=== PATIENT | female | born 1935 | race Caucasian/White ===

== ENCOUNTER 2016-05-26 06:29 | Emergency (ER) | payer MEDICARE ==
--- NOTE | 2016-05-26 07:24 | DIAGNOSTIC IMAGING REPORT ---
PROCEDURE: XR WRIST 1 OR 2 VIEWS - LEFT INDICATION: TRAUMA TECHNIQUE: AP view COMPARISON: None. FINDINGS: Minimally impacted transverse distal radius fracture. There is a questionable nondisplaced avulsion fracture of the ulnar styloid. Osteopenia. There is soft tissue swelling. IMPRESSION: 1. Minimally impacted distal radius fracture 2. Questionable avulsion fracture of the ulnar styloid 3. Osteopenia
--- NOTE | 2016-05-26 07:58 | DIAGNOSTIC IMAGING REPORT ---
PROCEDURE: XR WRIST 1 OR 2 VIEWS - LEFT INDICATION: Fall injury TECHNIQUE: AP and lateral views COMPARISON: Left wrist x-ray 05/26/2016 FINDINGS: Transverse impacted nondisplaced fracture of the distal radius extending to the articular surface. Smooth deformity of the ulnar styloid suggestive of old post-traumatic changes. Osteopenia. Soft tissue swelling IMPRESSION: 1. Transverse impacted intra-articular fracture of the distal radius
--- NOTE | 2016-05-26 09:47 | ED NURSING NOTES ---
Clinical Report - Nurses [facility] [address] [place] [address] 05/26/2016 6:31 Patient: JOSAFAT MAGALLANES TRIAGE Triage time 0640. Acuity: LEVEL 3. Chief Complaint: INJURY TO LEFT WRIST. --06:43 Alvaro Leonardo R.N. 06:33 05/26/16. BP: 157/91. HR: 100. RR: 18. O2 saturation: 96%. Temp: 98.8 F. Pain level now 0/10. --06:43 Alvaro Leonardo R.N. Weight: 68 kg estimated. Height/Length: 67 inches Estimated. BMI: 23.5. --06:38 Alvaro Leonardo R.N. Medications Calcium Carbonate-Vitamin D Oral (Capsule 500-50 mg-unit) 1 capsule. Raloxifene HCl Oral 60 mg, daily. --06:40 Alvaro Leonardo R.N. ClonazePAM Oral (Tablet 0.5 mg) 1-1/2 tablets, 3x a day. --07:33 Paula Chirinos R.N. Furosemide Oral (Tablet 20 mg) 1 tablet, daily. --07:34 Paula Chirinos R.N. Multivitamins Oral 1 pill, daily. --07:34 Paula Chirinos R.N. Probiotic Daily Oral 1tab, bid. --07:34 Paula Chirinos R.N. Vitamin D Oral (Capsule 1000 unit) 2 capsules, daily. --07:35 Paula Chirinos R.N. Mirtazapine Oral (Tablet 15 mg) 1 tablet, at bedtime. --07:36 Paula Chirinos R.N. Lortab Oral (Tablet 10-325 mg), PRN. --07:37 Paula Chirinos R.N. The following entry was struck by Paula Chirinos R.N., 07:44 (05/26/16) Reason - other. <<STRICKEN ENTRY-- Triamterene-HCTZ Oral (Tablet 37.5-25 mg) 1 tablet, daily. --06:40 Alvaro Leonardo R.N. --END STRIKE>> The following entry was struck by Paula Chirinos R.N., 07:44 (05/26/16) Reason - other. <<STRICKEN ENTRY-- Donepezil HCl Oral (Tablet 5 mg) 1 tablet, daily. --06:40 Alvaro Leonardo R.N. --END STRIKE>> The following entry was struck by Paula Chirinos R.N., 07:43 (05/26/16) Reason - other. <<STRICKEN ENTRY-- FLUoxetine HCl Oral 40 mg, daily. --06:40 Alvaro Leonardo R.N. --END STRIKE>> The following entry was struck by Paula Chirinos R.N., 07:43 (05/26/16) Reason - other. <<STRICKEN ENTRY-- LORazepam Oral 0.25 mg, 3x a day prn, AND 0.25mg nightly at HS . --06:40 Alvaro Leonardo R.N. --END STRIKE>> The following entry was struck by Paula Chirinos R.N., 07:43 (05/26/16) Reason - other. <<STRICKEN ENTRY-- Omeprazole Oral 20 mg, before meals. --06:40 Alvaro Leonardo R.N. --END STRIKE>> The following entry was struck by Paula Chirinos R.N., 07:42 (05/26/16) Reason - other. <<STRICKEN ENTRY-- Cholestyramine Oral 4 gm, 2x a day. --06:40 Alvaro Leonardo R.N. --END STRIKE>>. Allergies Lipitor- liver enzymes become elevated. MEDICATION FOR EYE ITCHING. --06:40 Alvaro Leonardo R.N. Atorvastatin. --07:30 Paula Chirinos R.N. History Arrived by EMS. 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 Mechanism of injury: fell. ( glf with swelling to left wrist approx. 12 hours ago). No neck pain, weakness or numbness. 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 SOCIAL HX: No alcohol use or drug use. NUTRITIONAL RISK ASSESSMENT: The nutritional risk assessment revealed no deficiencies. FALL RISK ASSESSMENT: Fall risk assessment completed. Risk factors identified include patient age greater than 65 years, history of fall and impairment of cognition. FUNCTIONAL ASSESSMENT: Functional assessment performed: requires assistance with the activities of daily living. LEARNING NEEDS ASSESSMENT: The learning needs assessment could not be obtained due to the patient's condition. --06:43 Alvaro Leonardo R.N. PROBLEMS: URI. Depression. Memory loss. Hyperlipidemia. Thrombocytosis. Vericose vein. Chest Pain. Rosacea. Elevated LFT's. Hemorrhoids. Rheumatoid Arthritis. Diverticulosis. UTI - Urinary Tract Infection. Pulmonary Nodule. Pharyngitis. Immunizations. Bronchitis. Nephrolithiasis. Arthritis. Irritable Bowel Syndrome. Gastroesophageal Reflux. Chronic Back Pain. Hypertension. --06:41 Alvaro Leonardo R.N. ADDITIONAL SURGERIES: Ankle fx. Appendectomy. Back Surgery. Breast Biopsy. Cholecystectomy. Colonoscopy. Hysterectomy. Oophorectomy. Tonsillectomy. Upper GI endoscopy. --06:41 Alvaro Leonardo R.N. Interventions ID band on patient. --06:43 Alvaro Leonardo R.N. PHYSICAL ASSESSMENT To room via stretcher. GENERAL / NEURO / PSYCH: The patient is awake and alert, appears comfortable, shows apparent trauma and has normal color for race. She is disoriented and confused, has good eye contact and exhibits normal consolability. She appears relaxed and cheerful. EXTREMITIES: Capillary refill is less than 2 seconds in the extremities. Extremity pulses are within normal limits. Left wrist: swelling and ecchymosis located in the dorsal and ulnar aspect of the wrist. SKIN: Skin intact. Skin is warm and dry. --06:45 Alvaro Leonardo R.N. NURSING PROGRESS NOTES Patient identifiers checked. Call light placed in reach. Side rails up x 2. Bed placed in lowest position. Brakes of bed on. --06:45 Alvaro Leonardo R.N. 06:58 05/26/16. Care transferred and report received. --06:58 Dwayne Sheppard R.N. 07:05 05/26/16. ( Pt assessed, pt is confused, pt does not know or understand why she is here. Pt with noticeable swelling to left wrist. Pt is not impulsive at this time. Pt is calm, lying in bed, call light is within reach.). --07:05 Dwayne Sheppard R.N. 07:08 05/26/16. --07:08 Dwayne Sheppard R.N. 07:07 05/26/16. BP: 142/91. HR: 90. RR: 18. O2 saturation: 90% on room air. --07:08 Dwayne Sheppard R.N. 07:10 05/26/16. ( Placed pt on oxygen for low oxygen saturation). --07:10 Dwayne Sheppard R.N. 07:13 05/26/16. --07:13 Dwayne Sheppard R.N. 07:13 05/26/16. O2 saturation: 92% on nasal cannula. O2 started at 2 liters/minute. --07:13 Dwayne Sheppard R.N. 07:14 05/26/16. ( Sats increased after oxygen placed on pt). --07:14 Dwayne Sheppard R.N. 07:28 05/26/16. ( Gave pt a warm blanket and repostioned). --07:28 Dwayne Sheppard R.N. 08:57 05/26/2016 TYLENOL W CODEINE (Acetaminophen-Codeine) PO 1 tab given. Allergies verified and confirmed 5 rights. --08:57 Dwayne Sheppard R.N. 08:58 05/26/16. ( Gave pt pain med with Jello, crushed, pt tolerated well). --08:58 Dwayne Sheppard R.N. Sugar tong fiberglass upper extremity splint applied to right arm, elbow, forearm, wrist and hand by tech. Distal pulses intact, sensation intact and motor within normal limits. Sling applied to left arm by diet technician registered. --09:48 Elizabeth Garcia ER Tech1 ( 4 person assist applying splint. 2 person assist taking pt. in wheelchair to car.). --10:05 Elizabeth Garcia PJ Tech1. DISPOSITION / DISCHARGE 11:02 05/26/16. Departure time: 1015. Condition at departure: improved. The goals identified in the patient's plan of care were met. Ability to learn limited by poor cooperation and dementia. Learning barriers note: educated with daughter at bedside. Discharge instructions provided and reviewed with the patient and family. Reviewed warnings. Reviewed medication(s). Treatments reviewed. Patient and family verbalized understanding. Written instructions provided in [place]inean. The patient was discharged by the physician. She was discharged home and accompanied by family. She left the Emergency Department in a wheelchair and via private vehicle. Family member driving. ( DC back to usp, report given to usp RN, pt wheel chaired to car with nurse and tech. Pt confused and tolerated well placing pt into daughter (POA) car. Daughter understands POC and pts status. Relayed to usp that pt needs to follow up with ortho surgery per DC instructions, rx given to daughter to provide to usp.). FALL RISK ASSESSMENT: Fall risk assessment completed. No fall risk identified. --11:02 Dwayne Sheppard R.N. 10:58 05/26/16. BP: 134/72. HR: 72. RR: 14. O2 saturation: 95% on room air. Temp: 98.1 F (oral). --11:02 Dwayne Sheppard R.N. Locked/Released at 05/26/2016 11:03 by Dwayne Sheppard R.N.
--- NOTE | 2016-05-26 09:47 | ED ORDER SUMMARY ---
..... Patient: JOSAFAT MAGALLANES OrderSheet VisitID: [id number] [address] [place] [address] 81y, F Registration Date/Time: 05/26/2016 ORDER SHEET Weight: 68.0 kg (estimated) Allergies: Lipitor- liver enzymes become elevated, MEDICATION FOR EYE ITCHING, Atorvastatin GENERAL ORDERS: Wrist 3 or 4V Left Urgent (06:47 05/26/2016 Latisha JACOBO) (Ack 6:50 CHagerty ER Aircraft Stress Analyst) (Cancelled: Unable to Collect6:57 CHagerty ER Aircraft Stress Analyst) Wrist 2V Left Urgent (07:08 05/26/2016 CHagerty ER Aircraft Stress Analyst verbal order read back to Latisha JACOBO) (Ack 7:11 CHagerty ER Aircraft Stress Analyst) (7:11 CHagerty ER Aircraft Stress Analyst) (7:11 GUnger) Wrist 2V Left Urgent (07:31 05/26/2016 LMuller per protocol) (Ack 7:32 LMuller) (7:44 LMuller) MEDICATION ORDERS: Tylenol w Codeine PO 1 tab (HIGH ALERT MEDICATION, NOW) (08:57 05/26/2016 Marii R.NGonzález verbal order read back to Latisha JACOBO) (8:57 Marii R.N.) IV FLUIDS: ORDER SHEET NOTES: Reason for Study: Pain [Electronically signed by Dwayne Sheppard R.N. (11:03 05/26/2016)] [Electronically signed by Marquise Schwartz MD (09:19 06/03/2016)] [Electronically locked/signed by Dwayne Sheppard R.N. (11:03 05/26/2016)]
--- NOTE | 2016-05-26 09:47 | ED CLINICAL REPORT ---
Clinical Report - Physicians/Mid Levels [facility] [address] [address] 05/26/2016 6:31 Patient: JOSAFAT MAGALLANES Time Seen: 06:46. Arrived- By ambulance. 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 History limited by dementia. Physical Exam limited by dementia. HISTORY OF PRESENT ILLNESS Chief Complaint: FALL. Location of injuries- left wrist. The injury occurred just prior to arrival. Fell. Occurred at a assisted. The patient complains of mild pain. No blow to the head, neck pain or loss of consciousness. REVIEW OF SYSTEMS Unobtainable due to patient's poor comprehension. SOCIAL HISTORY No alcohol use or drug use. Resides in a assisted. FAMILY HISTORY No significant family medical history. 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 PHYSICAL EXAM Vital Signs: 05/26/2016 06:33 BP: 157/91. HR: 100. RR: 18. O2 saturation: 96%. Temp: 98.8 F. Have been reviewed. Appearance: Alert. Head: Head non-tender. No swelling of head. Eyes: Pupils equal, round and reactive to light. ENT: No dental injury. Pharynx normal. Neck: Painless ROM. Non-tender. No vertebral tenderness. CVS: Heart sounds normal. Pulses normal. Respiratory: Breath sounds normal. Chest nontender. Abdomen: No visible injury. Soft and nontender. Bowel sounds normal. No organomegaly. No mass. Back: ROM normal. (kyphotic). Skin: Skin intact. Skin warm and dry. Extremities: Left wrist: severe tenderness and mild swelling. Limited ROM secondary to pain. Neurovascular intact distally. No ecchymosis or deformity. Pelvis stable. No lower extremity edema. Neuro: No motor deficit. No sensory deficit. LABS, X-RAYS, AND EKG Lt Wrist X-ray: (IMPRESSION: 1. Minimally impacted distal radius fracture 2. Questionable avulsion fracture of the ulnar styloid 3. Osteopenia). The X-rays were interpreted by the radiologist and contemporaneously by me. PROGRESS AND PROCEDURES Splint Application: Fiberglass sugar tong splint and sling applied to left wrist. Splint applied by tech. Reassessed extremity following splint application. Neurovascular intact. Follow-up recommended. Course of Care: Patient is stable. Consult obtained from orthopedics. Dr. Haynes. Case discussed. Will see patient in the office. Consultation performed in ED. Patient/family counseled. Old medical records ordered. Disposition: Discharged. Condition: stable. CLINICAL IMPRESSION Fracture of the shaft of the left radius Possible ulnar styloid fracture of the left ulna. INSTRUCTIONS Apply ice for 20 minutes four times a day until released. Don't apply ice directly to skin and don't use while asleep. Wear sling until released. Wear fiberglass splint until released. Warnings: COMPLICATIONS: Complications from this condition include: possible injury to a nerve, possible injury to a tendon and possible injury to a ligament. Future problems may include loss of function, pain, deformity and poor fracture healing. It is important to follow up with a physician for further evaluation and treatment. GENERAL WARNINGS: Return or contact your physician immediately if your condition worsens or changes unexpectedly, if not improving as expected, or if other problems arise. Prescription Medications: Tylenol with Codeine #3 (30 mg / 300 mg): take 1 tablet every 4 hours as needed for pain. Dispense fifteen (15). No refills. Substitution is permissible. Understanding of the discharge instructions verbalized by family. Follow-up with: [facility], , [address], [facility], [id number] Follow up in five days. Call for the next available appointment. (Electronically signed by Marquise Schwartz MD 06/03/2016 9:19)
--- NOTE | 2016-05-26 09:47 | ED ORDER SUMMARY ---
..... Patient: JOSAFAT MAGALLANES OrderSheet [facility] VisitID: [id number] [address] [place] [address] 81y, F Registration Date/Time: 05/26/2016 ORDER SHEET Weight: 68.0 kg (estimated) Allergies: Lipitor- liver enzymes become elevated, MEDICATION FOR EYE ITCHING, Atorvastatin GENERAL ORDERS: Wrist 3 or 4V Left Urgent (06:47 05/26/2016 Latisha JACOBO) (Ack 6:50 CHagerty ER Ditch Digger) (Cancelled: Unable to Collect6:57 CHagerty ER Ditch Digger) Wrist 2V Left Urgent (07:08 05/26/2016 CHagerty ER Ditch Digger verbal order read back to Latisha JACOBO) (Ack 7:11 CHagerty ER Ditch Digger) (7:11 CHagerty ER Ditch Digger) (7:11 GUnger) Wrist 2V Left Urgent (07:31 05/26/2016 LMuller per protocol) (Ack 7:32 LMuller) (7:44 LMuller) MEDICATION ORDERS: Tylenol w Codeine PO 1 tab (HIGH ALERT MEDICATION, NOW) (08:57 05/26/2016 Marii R.NGonzález verbal order read back to Latisha JACOBO) (8:57 Marii R.N.) IV FLUIDS: ORDER SHEET NOTES: Reason for Study: Pain [Electronically signed by Dwayne Sheppard R.N. (11:03 05/26/2016)] [Electronically signed by Marquise Schwartz MD (09:19 06/03/2016)] [Electronically locked/signed by Dwayne Sheppard R.N. (11:03 05/26/2016)]
--- NOTE | 2016-05-26 09:47 | ED CLINICAL REPORT ---
Clinical Report - Physicians/Mid Levels [facility] [address] [place] [address] 05/26/2016 6:31 Patient: JOSAFAT MAGALLANES Time Seen: 06:46. Arrived- By ambulance. 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 History limited by dementia. Physical Exam limited by dementia. HISTORY OF PRESENT ILLNESS Chief Complaint: FALL. Location of injuries- left wrist. The injury occurred just prior to arrival. Fell. Occurred at a skilled nursing. The patient complains of mild pain. No blow to the head, neck pain or loss of consciousness. REVIEW OF SYSTEMS Unobtainable due to patient's poor comprehension. SOCIAL HISTORY No alcohol use or drug use. Resides in a skilled nursing. FAMILY HISTORY No significant family medical history. 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 PHYSICAL EXAM Vital Signs: 05/26/2016 06:33 BP: 157/91. HR: 100. RR: 18. O2 saturation: 96%. Temp: 98.8 F. Have been reviewed. Appearance: Alert. Head: Head non-tender. No swelling of head. Eyes: Pupils equal, round and reactive to light. ENT: No dental injury. Pharynx normal. Neck: Painless ROM. Non-tender. No vertebral tenderness. CVS: Heart sounds normal. Pulses normal. Respiratory: Breath sounds normal. Chest nontender. Abdomen: No visible injury. Soft and nontender. Bowel sounds normal. No organomegaly. No mass. Back: ROM normal. (kyphotic). Skin: Skin intact. Skin warm and dry. Extremities: Left wrist: severe tenderness and mild swelling. Limited ROM secondary to pain. Neurovascular intact distally. No ecchymosis or deformity. Pelvis stable. No lower extremity edema. Neuro: No motor deficit. No sensory deficit. LABS, X-RAYS, AND EKG Lt Wrist X-ray: (IMPRESSION: 1. Minimally impacted distal radius fracture 2. Questionable avulsion fracture of the ulnar styloid 3. Osteopenia). The X-rays were interpreted by the radiologist and contemporaneously by me. PROGRESS AND PROCEDURES Splint Application: Fiberglass sugar tong splint and sling applied to left wrist. Splint applied by tech. Reassessed extremity following splint application. Neurovascular intact. Follow-up recommended. Course of Care: Patient is stable. Consult obtained from orthopedics. Dr. Haynes. Case discussed. Will see patient in the office. Consultation performed in ED. Patient/family counseled. Old medical records ordered. Disposition: Discharged. Condition: stable. CLINICAL IMPRESSION Fracture of the shaft of the left radius Possible ulnar styloid fracture of the left ulna. INSTRUCTIONS Apply ice for 20 minutes four times a day until released. Don't apply ice directly to skin and don't use while asleep. Wear sling until released. Wear fiberglass splint until released. Warnings: COMPLICATIONS: Complications from this condition include: possible injury to a nerve, possible injury to a tendon and possible injury to a ligament. Future problems may include loss of function, pain, deformity and poor fracture healing. It is important to follow up with a physician for further evaluation and treatment. GENERAL WARNINGS: Return or contact your physician immediately if your condition worsens or changes unexpectedly, if not improving as expected, or if other problems arise. Prescription Medications: Tylenol with Codeine #3 (30 mg / 300 mg): take 1 tablet every 4 hours as needed for pain. Dispense fifteen (15). No refills. Substitution is permissible. Understanding of the discharge instructions verbalized by family. Follow-up with: [facility], , [address], [facility], [address] Follow up in five days. Call for the next available appointment. (Electronically signed by Marquise Schwartz MD 06/03/2016 9:19)
--- NOTE | 2016-05-26 09:47 | ED NURSING NOTES ---
Clinical Report - Nurses [facility] [address] [place] [address] 05/26/2016 6:31 Patient: JOSAFAT MAGALLANES TRIAGE Triage time 0640. Acuity: LEVEL 3. Chief Complaint: INJURY TO LEFT WRIST. --06:43 Alvaro Leonardo R.N. 06:33 05/26/16. BP: 157/91. HR: 100. RR: 18. O2 saturation: 96%. Temp: 98.8 F. Pain level now 0/10. --06:43 Alvaro Leonardo R.N. Weight: 68 kg estimated. Height/Length: 67 inches Estimated. BMI: 23.5. --06:38 Alvaro Leonardo R.N. Medications Calcium Carbonate-Vitamin D Oral (Capsule 500-50 mg-unit) 1 capsule. Raloxifene HCl Oral 60 mg, daily. --06:40 Alvaro Leonardo R.N. ClonazePAM Oral (Tablet 0.5 mg) 1-1/2 tablets, 3x a day. --07:33 Paula Chirinos R.N. Furosemide Oral (Tablet 20 mg) 1 tablet, daily. --07:34 Paula Chirinos R.N. Multivitamins Oral 1 pill, daily. --07:34 Paula Chirinos R.N. Probiotic Daily Oral 1tab, bid. --07:34 Paula Chirinos R.N. Vitamin D Oral (Capsule 1000 unit) 2 capsules, daily. --07:35 Paula Chirinos R.N. Mirtazapine Oral (Tablet 15 mg) 1 tablet, at bedtime. --07:36 Paula Chirinos R.N. Lortab Oral (Tablet 10-325 mg), PRN. --07:37 Paula Chirinos R.N. The following entry was struck by Paula Chirinos R.N., 07:44 (05/26/16) Reason - other. <<STRICKEN ENTRY-- Triamterene-HCTZ Oral (Tablet 37.5-25 mg) 1 tablet, daily. --06:40 Alvaro Leonardo R.N. --END STRIKE>> The following entry was struck by Paula Chirinos R.N., 07:44 (05/26/16) Reason - other. <<STRICKEN ENTRY-- Donepezil HCl Oral (Tablet 5 mg) 1 tablet, daily. --06:40 Alvaro Leonardo R.N. --END STRIKE>> The following entry was struck by Paula Chirinos R.N., 07:43 (05/26/16) Reason - other. <<STRICKEN ENTRY-- FLUoxetine HCl Oral 40 mg, daily. --06:40 Alvaro Leonardo R.N. --END STRIKE>> The following entry was struck by Paula Chirinos R.N., 07:43 (05/26/16) Reason - other. <<STRICKEN ENTRY-- LORazepam Oral 0.25 mg, 3x a day prn, AND 0.25mg nightly at HS . --06:40 Alvaro Leonardo R.N. --END STRIKE>> The following entry was struck by Paula Chirinos R.N., 07:43 (05/26/16) Reason - other. <<STRICKEN ENTRY-- Omeprazole Oral 20 mg, before meals. --06:40 Alvaro Leonardo R.N. --END STRIKE>> The following entry was struck by Paula Chirinos R.N., 07:42 (05/26/16) Reason - other. <<STRICKEN ENTRY-- Cholestyramine Oral 4 gm, 2x a day. --06:40 Alvaro Leonardo R.N. --END STRIKE>>. Allergies Lipitor- liver enzymes become elevated. MEDICATION FOR EYE ITCHING. --06:40 Alvaro Leonardo R.N. Atorvastatin. --07:30 Paula Chirinos R.N. History Arrived by EMS. 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 Mechanism of injury: fell. ( glf with swelling to left wrist approx. 12 hours ago). No neck pain, weakness or numbness. Treatment DRAW END HAND: None. SOCIAL HX: No alcohol use or drug use. NUTRITIONAL RISK ASSESSMENT: The nutritional risk assessment revealed no deficiencies. FALL RISK ASSESSMENT: Fall risk assessment completed. Risk factors identified include patient age greater than 65 years, history of fall and impairment of cognition. FUNCTIONAL ASSESSMENT: Functional assessment performed: requires assistance with the activities of daily living. LEARNING NEEDS ASSESSMENT: The learning needs assessment could not be obtained due to the patient's condition. --06:43 Alvaro Leonardo R.N. PROBLEMS: URI. Depression. Memory loss. Hyperlipidemia. Thrombocytosis. Vericose vein. Chest Pain. Rosacea. Elevated LFT's. Hemorrhoids. Rheumatoid Arthritis. Diverticulosis. UTI - Urinary Tract Infection. Pulmonary Nodule. Pharyngitis. Immunizations. Bronchitis. Nephrolithiasis. Arthritis. Irritable Bowel Syndrome. Gastroesophageal Reflux. Chronic Back Pain. Hypertension. --06:41 Alvaro Leonardo R.N. ADDITIONAL SURGERIES: Ankle fx. Appendectomy. Back Surgery. Breast Biopsy. Cholecystectomy. Colonoscopy. Hysterectomy. Oophorectomy. Tonsillectomy. Upper GI endoscopy. --06:41 Alvaro Leonardo R.N. Interventions ID band on patient. --06:43 Alvaro Leonardo R.N. PHYSICAL ASSESSMENT To room via stretcher. GENERAL / NEURO / PSYCH: The patient is awake and alert, appears comfortable, shows apparent trauma and has normal color for race. She is disoriented and confused, has good eye contact and exhibits normal consolability. She appears relaxed and cheerful. EXTREMITIES: Capillary refill is less than 2 seconds in the extremities. Extremity pulses are within normal limits. Left wrist: swelling and ecchymosis located in the dorsal and ulnar aspect of the wrist. SKIN: Skin intact. Skin is warm and dry. --06:45 Alvaro Leonardo R.N. NURSING PROGRESS NOTES Patient identifiers checked. Call light placed in reach. Side rails up x 2. Bed placed in lowest position. Brakes of bed on. --06:45 Alvaro Leonardo R.N. 06:58 05/26/16. Care transferred and report received. --06:58 Dwayne Sheppard R.N. 07:05 05/26/16. ( Pt assessed, pt is confused, pt does not know or understand why she is here. Pt with noticeable swelling to left wrist. Pt is not impulsive at this time. Pt is calm, lying in bed, call light is within reach.). --07:05 Dwayne Sheppard R.N. 07:08 05/26/16. --07:08 Dwayne Sheppard R.N. 07:07 05/26/16. BP: 142/91. HR: 90. RR: 18. O2 saturation: 90% on room air. --07:08 Dwayne Sheppard R.N. 07:10 05/26/16. ( Placed pt on oxygen for low oxygen saturation). --07:10 Dwayne Sheppard R.N. 07:13 05/26/16. --07:13 Dwayne Sheppard R.N. 07:13 05/26/16. O2 saturation: 92% on nasal cannula. O2 started at 2 liters/minute. --07:13 Dwayne Sheppard R.N. 07:14 05/26/16. ( Sats increased after oxygen placed on pt). --07:14 Dwayne Sheppard R.N. 07:28 05/26/16. ( Gave pt a warm blanket and repostioned). --07:28 Dwayne Sheppard R.N. 08:57 05/26/2016 TYLENOL W CODEINE (Acetaminophen-Codeine) PO 1 tab given. Allergies verified and confirmed 5 rights. --08:57 Dwayne Sheppard R.N. 08:58 05/26/16. ( Gave pt pain med with Jello, crushed, pt tolerated well). --08:58 Dwayne Sheppard R.N. Sugar tong fiberglass upper extremity splint applied to right arm, elbow, forearm, wrist and hand by tech. Distal pulses intact, sensation intact and motor within normal limits. Sling applied to left arm by computed tomography technician. --09:48 Elizabeth Garcia ER Tech1 ( 4 person assist applying splint. 2 person assist taking pt. in wheelchair to car.). --10:05 Elizabeth Garcia PJ Tech1. DISPOSITION / DISCHARGE 11:02 05/26/16. Departure time: 1015. Condition at departure: improved. The goals identified in the patient's plan of care were met. Ability to learn limited by poor cooperation and dementia. Learning barriers note: educated with daughter at bedside. Discharge instructions provided and reviewed with the patient and family. Reviewed warnings. Reviewed medication(s). Treatments reviewed. Patient and family verbalized understanding. Written instructions provided in Monegasque. The patient was discharged by the physician. She was discharged home and accompanied by family. She left the Emergency Department in a wheelchair and via private vehicle. Family member driving. ( DC back to intermediate, report given to intermediate RN, pt wheel chaired to car with nurse and tech. Pt confused and tolerated well placing pt into daughter (POA) car. Daughter understands POC and pts status. Relayed to intermediate that pt needs to follow up with ortho surgery per DC instructions, rx given to daughter to provide to intermediate.). FALL RISK ASSESSMENT: Fall risk assessment completed. No fall risk identified. --11:02 Dwayne Sheppard R.N. 10:58 05/26/16. BP: 134/72. HR: 72. RR: 14. O2 saturation: 95% on room air. Temp: 98.1 F (oral). --11:02 Dwayne Sheppard R.N. Locked/Released at 05/26/2016 11:03 by Dwayne Sheppard R.N.
--- NOTE | 2016-06-03 09:20 | ED MAR SUMMARY ---
..... Medication Administration Record [facility] [address] [place] [address] Patient: JOSAFAT MAGALLANES Visit ID: [id number] 81y, F Weight: 68.0 kg Height/Length: 67 in BMI: 23.5 ALLERGIES: Lipitor- liver enzymes become elevated, MEDICATION FOR EYE ITCHING, Atorvastatin Given 08:57 05/26/2016 Dwayne Sheppard R.N. Medication Administered: TYLENOL W CODEINE [PO] (ACETAMINOPHEN-CODEINE), Dose: 1 tab PO. Medication Ordered: Tylenol w Codeine PO 1 tab (HIGH ALERT MEDICATION, NOW).
--- NOTE | 2016-06-03 09:20 | ED MED RECONCILIATION SUMMARY ---
Patient: JOSAFAT MAGALLANES Medication Reconciliation Report [facility] VisitID: [id number] [address] [place] [address] 81y, F Registration Date/Time: 05/26/2016 Weight: 68.0 kg Height/Length: 67 in. BMI: 23.5 ALLERGIES: Atorvastatin, Lipitor- liver enzymes become elevated, MEDICATION FOR EYE ITCHING The patient's Home Medications are listed below: THE FOLLOWING MEDICATIONS NEED TO BE RECONCILED: Calcium Carbonate-Vitamin D Oral (500-50 mg-unit) 1 capsule ClonazePAM Oral (0.5 mg) 1-1/2 tablets, 3x a day Furosemide Oral (20 mg) 1 tablet, daily Lortab Oral (10-325 mg), PRN Mirtazapine Oral (15 mg) 1 tablet, at bedtime Multivitamins Oral 1 pill, daily Probiotic Daily Oral 1tab, bid Raloxifene HCl Oral 60 mg, daily Vitamin D Oral (1000 unit) 2 capsules, daily The source(s) of the original Home Medication information: Not obtained. The following Medications were given to the patient in the Emergency Department: TYLENOL W CODEINE [PO] PO 1 tab, administered: 05/26/2016 8:57:00 AM The following Medications were prescribed to the patient: Tylenol with Codeine #3 (30 mg / 300 mg): take 1 tablet every 4 hours as needed for pain. Dispense fifteen (15). No refills. Substitution is permissible. -- Marquise Schwartz MD
--- NOTE | 2016-06-03 09:20 | ED MAR SUMMARY ---
..... Medication Administration Record [facility] [address] [place] [address] Patient: JOSAFAT MAGALLANES Visit ID: [id number] 81y, F Weight: 68.0 kg Height/Length: 67 in BMI: 23.5 ALLERGIES: Lipitor- liver enzymes become elevated, MEDICATION FOR EYE ITCHING, Atorvastatin Given 08:57 05/26/2016 Dwayne Sheppard R.N. Medication Administered: TYLENOL W CODEINE [PO] (ACETAMINOPHEN-CODEINE), Dose: 1 tab PO. Medication Ordered: Tylenol w Codeine PO 1 tab (HIGH ALERT MEDICATION, NOW).
--- NOTE | 2016-06-03 09:20 | ED DISCHARGE INSTRUCTIONS ---
Patient: JOSAFAT MAGALLANES General Instructions [facility] VisitID: [id number] [address] [place] [address] 81y, F Registration Date/Time: 05/26/2016 Fracture of the shaft of the left radius INSTRUCTIONS Apply ice for 20 minutes four times a day until released. Don't apply ice directly to skin and don't use while asleep. Wear sling until released. Wear fiberglass splint until released. Warnings: COMPLICATIONS: Complications from this condition include: possible injury to a nerve, possible injury to a tendon and possible injury to a ligament. Future problems may include loss of function, pain, deformity and poor fracture healing. It is important to follow up with a physician for further evaluation and treatment. GENERAL WARNINGS: Return or contact your physician immediately if your condition worsens or changes unexpectedly, if not improving as expected, or if other problems arise. Prescription Medications: Tylenol with Codeine #3 (30 mg / 300 mg): take 1 tablet every 4 hours as needed for pain. Dispense fifteen (15). No refills. Substitution is permissible. Understanding of the discharge instructions verbalized by family. Follow-up with: [facility], , [address], [place], [address] Follow up in five days. Call for the next available appointment. ADDITIONAL INFORMATION Fracture: Wrist (General) You have a fracture (break) of a bone in your wrist. This may be a small crack or chip in the bone; or a major break with the broken parts pushed out of position. Wrist fractures are treated with a splint or cast. They take about 4-6 weeks to heal. Severe injuries may require surgery. Home Care: Keep your arm elevated to reduce pain and swelling. When sitting or lying down elevate your arm above the level of your heart. You can do this by placing your arm on a pillow that rests on your chest or on a pillow at your side. This is most important during the first 48 hours after injury. Apply an ice pack (ice cubes in a plastic bag, wrapped in a towel) over the injured area for 20 minutes every 1-2 hours the first day. You can place the ice pack inside the sling and directly over the splint/cast. Continue with ice packs 3-4 times a day for the next two days, then as needed for the relief of pain and swelling. Keep the cast/splint completely dry at all times. Bathe with your cast/splint out of the water, protected with a large plastic bag, rubber-banded at the top end. If a fiberglass splint/cast gets wet, you can dry it with a hair-dryer. You may use acetaminophen (Tylenol) or ibuprofen (Motrin, Advil) to control pain, unless another pain medicine was prescribed. [NOTE: If you have chronic liver or kidney disease or ever had a stomach ulcer or GI bleeding, talk with your doctor before using these medicines.] Follow Up with your doctor in one week, or as advised by our staff, to be sure the bone is healing properly. If a splint was applied, it will be changed to a cast during your follow-up visit. [NOTE: Any X-rays taken will be reviewed by a radiologist. You will be notified if there are any new findings that may affect your care.] Get Prompt Medical Attention if any of the following occur: The plaster cast or splint becomes wet or soft The fiberglass cast or splint remains wet for more than 24 hours Increased tightness or pain under the cast or splint Fingers become swollen, cold, blue, numb or tingly Sling A sling is designed to support your arm in a position of rest. It is used for injuries of the hand, forearm, upper arm, and shoulder. A shoulder that is immobilized too long can become stiff and lose range of motion. Follow up with your doctor as advised and do not use the sling longer than directed. Home Use: Leave the sling in place as long as directed by your doctor. Unless told otherwise, you may remove it when bathing, dressing, and when you go to sleep. The sling is adjustable. If it becomes loose, adjust it so that your forearm is horizontal (level with the ground). Your hand should be level with the elbow. Splint Care, Fiberglass The following will help you care for your splint: It will take up totwo hours for your fiber glass splint to fully harden; therefore, do notapply any pressure on it during that time or else it may break. To prevent swelling under the splint, for thefirst 48 hours: If the splint is on yourarm, keep it in a sling or raised to shoulder level when sitting or standing; rest it on your chest or on a pillow at your side when lying down. If the splint is on yourfoot, keep it propped up above the level of your waist when sitting or lying. Avoid crutch walking as much as possible during this time. Keep the splint/cast dry at all times. Bathe with your splint/cast well out of the water, protected with a large plastic bag, rubber-banded at the top end. If a fiberglass cast or splint gets wet, you can dry it with a hair-dryer. Follow-up care Follow up with your doctor or this facility as advised. When to seek medical care Get prompt medical attention if any of the following occur: Bad odor from the splint or wound-fluid stains the splint The splint cracks or remains wet over 24 hours Increasing tightness or pressure under the splint Fingers or toes become swollen, cold, blue, numb or tingly Increased pain under the splint Acetaminophen, Codeine Phosphate Oral tablet What is this medicine? ACETAMINOPHEN; CODEINE (a set a RICH joie fen; KOE rashad) is a pain reliever. It is used to treat mild to moderate pain. How should I use this medicine? Take this medicine by mouth with a full glass of water. Follow the directions on the prescription label. If the medicine upsets your stomach, take the medicine with food or milk. Do not take more medicine than you are told to take. Talk to your storeroom keeper regarding the use of this medicine in children. Special care may be needed. What side effects may I notice from receiving this medicine? Side effects that you should report to your doctor or health rn primary care as soon as possible: allergic reactions like skin rash, itching or hives, swelling of the face, lips, or tongue breathing difficulties, wheezing confusion light headedness or fainting spells severe stomach pain yellowing of the skin or the whites of the eyes Side effects that usually do not require medical attention (report to your doctor or health rn primary care if they continue or are bothersome): dizziness drowsiness nausea, vomiting What may interact with this medicine? alcohol antihistamines benztropine drugs for bladder problems like solifenacin, trospium, oxybutynin, tolterodine, hycosamine, and methscopolamine drugs for breathing problems like ipratropium and tiotropium drugs for certain stomach or intestine problems like propantheline, homatropine methylbromide, glycopyrrolate, atropine, belladonna, and dicyclomine medicines for depression, anxiety, or psychotic disturbances medicines for sleep muscle relaxants naltrexone narcotic medicines (opiates) for pain phenothiazines like perphenazine, thioridazine, chlorpromazine, mesoridazine, fluphenazine, prochlorperazine, promazine, trifluoperazine scopolamine tramadol trihexyphenidyl What if I miss a dose? If you miss a dose, take it as soon as you can. If it is almost time for your next dose, take only that dose. Do not take double or extra doses. Where should I keep my medicine? Keep out of the reach of children. This medicine can be abused. Keep your medicine in a safe place to protect it from theft. Do not share this medicine with anyone. Selling or giving away this medicine is dangerous and against the law. Store at room temperature between 15 and 30 degrees C (59 and 86 degrees F). Protect from light. Keep container tightly closed. Throw away any unused medicine after the expiration date. Discard unused medicine and used packaging carefully. Pets and children can be harmed if they find used or lost packages. What should I tell my health care provider before I take this medicine? They need to know if you have any of these conditions: brain tumor Crohn's disease, inflammatory bowel disease, or ulcerative colitis drink more than 3 alcohol containing drinks per day drug abuse or addiction head injury heart or circulation problems kidney disease or problems going to the bathroom liver disease lung disease, asthma, or breathing problems an unusual or allergic reaction to acetaminophen, codeine, salicylates, other opioid analgesics, other medicines, foods, dyes, or preservatives or trying to get breast-feeding What should I watch for while using this medicine? Tell your doctor or health rn primary care if your pain does not go away, if it gets worse, or if you have new or a different type of pain. You may develop tolerance to the medication. Tolerance means that you will need a higher dose of the medication for pain relief. Tolerance is normal and is expected if you take the medicine for a long time. Do not suddenly stop taking your medicine because you may develop a severe reaction. Your body becomes used to the medicine. This does NOT mean you are addicted. Addiction is a behavior related to getting and using a drug for a non medical reason. If you have pain, you have a medical reason to take pain medicine. Your doctor will tell you how much medicine to take. If your doctor wants you to stop the medicine, the dose will be slowly lowered over time to avoid any side effects. You may get drowsy or dizzy. Do not drive, use machinery, or do anything that needs mental alertness until you know how this medicine affects you. Do not stand or sit up quickly, especially if you are an older patient. This reduces the risk of dizzy or fainting spells. Alcohol may interfere with the effect of this medicine. Avoid alcoholic drinks. There are different types of narcotic medicines (opiates) for pain. If you take more than one type at the same time, you may have more side effects. Give your health care provider a list of all medicines you use. Your doctor will tell you how much medicine to take. Do not take more medicine than directed. Call emergency for help if you have problems breathing. The medicine will cause constipation. Try to have a bowel movement at least every 2 to 3 days. If you do not have a bowel movement for 3 days, call your doctor or health rn primary care. Do not take Tylenol (acetaminophen) or medicines that have acetaminophen with this medicine. Too much acetaminophen can be very dangerous. Many nonprescription medicines contain acetaminophen. Always read the labels carefully to avoid taking more acetaminophen. Immediately call your physician or get emergency help if you are breast-feeding and your baby is sleepier than usual, is limp, or has difficulty or breathing. You have been given the following additional information: Fracture, Wrist [General] Sling Splint Care, Fiberglass Acetaminophen, Codeine Phosphate Oral tablet (Electronically signed by Marquise Schwartz MD 06/03/2016 9:19)
--- NOTE | 2016-06-03 09:20 | ED MED RECONCILIATION SUMMARY ---
Patient: JOSAFAT MAGALLANES Medication Reconciliation Report [facility] VisitID: [id number] [address] [place] [address] 81y, F Registration Date/Time: 05/26/2016 Weight: 68.0 kg Height/Length: 67 in. BMI: 23.5 ALLERGIES: Atorvastatin, Lipitor- liver enzymes become elevated, MEDICATION FOR EYE ITCHING The patient's Home Medications are listed below: THE FOLLOWING MEDICATIONS NEED TO BE RECONCILED: Calcium Carbonate-Vitamin D Oral (500-50 mg-unit) 1 capsule ClonazePAM Oral (0.5 mg) 1-1/2 tablets, 3x a day Furosemide Oral (20 mg) 1 tablet, daily Lortab Oral (10-325 mg), PRN Mirtazapine Oral (15 mg) 1 tablet, at bedtime Multivitamins Oral 1 pill, daily Probiotic Daily Oral 1tab, bid Raloxifene HCl Oral 60 mg, daily Vitamin D Oral (1000 unit) 2 capsules, daily The source(s) of the original Home Medication information: Not obtained. The following Medications were given to the patient in the Emergency Department: TYLENOL W CODEINE [PO] PO 1 tab, administered: 05/26/2016 8:57:00 AM The following Medications were prescribed to the patient: Tylenol with Codeine #3 (30 mg / 300 mg): take 1 tablet every 4 hours as needed for pain. Dispense fifteen (15). No refills. Substitution is permissible. -- Marquise Schwartz MD
== END 2016-05-26 10:15 | disposition home or self-care (01) ==
LOC: ED SRH 06:29
DX: S52.302A Unspecified fracture of shaft of left radius, initial encounter for closed fracture (principal); W18.30XA Fall on same level, unspecified, initial encounter; Y93.89 Activity, other specified; Y92.129 Unspecified place in nursing home as the place of occurrence of the external cause; Y99.9 Unspecified external cause status; I10 Essential (primary) hypertension; K21.9 Gastro-esophageal reflux disease without esophagitis; Z90.49 Acquired absence of other specified parts of digestive tract; Z90.710 Acquired absence of both cervix and uterus

== ENCOUNTER 2016-07-19 21:31 | Emergency (ER) | payer MEDICARE ==
--- NOTE | 2016-07-19 22:57 | DIAGNOSTIC IMAGING REPORT ---
PROCEDURE: CT HEAD WITHOUT CONTRAST INDICATION: TRAUMA/INJURY TECHNIQUE: Axial CT images were acquired through the head. Coronal and sagittal reformations were created. COMPARISON: 08/31/2012 FINDINGS: Moderate cerebral cortical atrophy, mildly progressed. Moderate patchy and confluent hypodensity in the periventricular and subcortical white matter. Interval development of mild ventriculomegaly. No intracranial hemorrhage or extraaxial fluid collections. Ventricles are normal in size, shape and position. There is no mass, mass effect or midline shift. The harris-white matter differentiation is normal. There is no edema. Subcutaneous hematoma measuring about 3.6 cm in length by about 8 mm in width in the left posterior parietal region. No underlying fracture. The paranasal sinuses and mastoid air cells are normally aerated. The orbits are normal. IMPRESSION: 1. No evidence of acute hemorrhage, mass effect, CVA, or fracture underlying a small left posterior subgaleal hematoma. 2. Since the most recent CT, there has been progression of cerebral cortical involution, white matter hypodensity, and development of ventriculomegaly. This is consistent with the patient's history of dementia. 3. Findings discussed with Dr. Cazares at [address] scans at this facility use dose modulation, iterative reconstruction, and/or weight-based dosing when appropriate to reduce radiation dose to as low as reasonably achievable.
--- NOTE | 2016-07-19 23:03 | DIAGNOSTIC IMAGING REPORT ---
PROCEDURE: CT CERVICAL SPINE W/O CONTRAST INDICATION: TRAUMA/INJURY TECHNIQUE: Axial CT images were obtained through the cervical spine. Coronal and sagittal reformations were created. No comparison. COMPARISON: None. FINDINGS: The craniocervical junction is intact. Mild atlantodental interval degeneration. The cervical vertebral bodies are normal in height without evidence of fracture. Moderate anterior and posterior endplate spurs. There is reversal of the normal cervical lordosis with a moderate kyphosis centered at C5. A posterior bridging osteophyte arising from the C5 inferior endplate extends caudally and, combined with moderate posterior disc osteophyte complex, results in a severe C5-6 central canal stenosis. There is moderate facet arthropathy at C2-3 on the left and mild facet arthropathy elsewhere. Multilevel uncovertebral joint hypertrophy and degenerative disc changes cause bilateral foraminal narrowing, C3-4 through C6-7, most severe on the right at C5-6 level. No prevertebral or paravertebral soft-tissue swelling or mass. Patent airway and emphysematous lung apices. IMPRESSION: 1. No evidence of vertebral body fracture or 2. Chronic-appearing cervical kyphosis with severe central canal stenosis at C5-6. 3. Chronic-appearing bony foraminal narrowing bilaterally on the right at C5-6. 4. Emphysema. 5. Findings called to the emergency room. All CT scans at this facility use dose modulation, iterative reconstruction, and/or weight-based dosing when appropriate to reduce radiation dose to as low as reasonably achievable.
--- NOTE | 2016-07-19 23:40 | ED ORDER SUMMARY ---
..... Patient: JOSAFAT MAGALLANES OrderSheet [facility] VisitID: [id number] [place] [address] 81y, F Registration Date/Time: 07/19/2016 ORDER SHEET Weight: 66.6 kg (stated) Allergies: Atorvastatin, Lipitor- liver enzymes become elevated, MEDICATION FOR EYE ITCHING GENERAL ORDERS: CT Head w/wo Cont (No) (N/A) Urgent (21:33 07/19/2016 RCollier R.N. verbal order read back to Heather JACOBO) (Cancelled: Other21:40 CHategekimana) Cervical Spine 4 or 5V Urgent (21:34 07/19/2016 RCollier R.N. verbal order read back to Heather JACOBO) (Cancelled: Other21:40 CHategekimana) CT Head wo Cont Urgent (21:42 07/19/2016 CHategekimana per protocol) (Ack 21:47 CHategekimana) (22:10 MCampbell) CT Cervical Spine wo Cont Urgent (21:43 07/19/2016 CHategekimana per protocol) (Ack 21:47 CHategekimana) (22:10 MCampbell) UA-Culture if indicated Urgent (22:09 07/19/2016 RCollier R.N. verbal order read back to Heather JACOBO) (Ack 22:10 CHategekimana) (22:26 RCollier R.N.) MEDICATION ORDERS: Ceftriaxone IM 1 gm (NOW) (23:34 07/19/2016 Heather JACOBO) (Ack 23:48 RCollier R.N.) (23:57 RCollier R.N.) IV FLUIDS: ORDER SHEET NOTES: [Electronically signed by Soledad Villanueva R.N. (00:38 07/20/2016)] [Electronically signed by Gerard Cazares MD (12:40 07/21/2016)] [Electronically locked/signed by Soledad Villanueva R.N. (00:38 07/20/2016)]
--- NOTE | 2016-07-19 23:40 | ED ORDER SUMMARY ---
..... Patient: JOSAFAT MAGALLANES OrderSheet [facility] VisitID: [id number] [place] [address] 81y, F Registration Date/Time: 07/19/2016 ORDER SHEET Weight: 66.6 kg (stated) Allergies: Atorvastatin, Lipitor- liver enzymes become elevated, MEDICATION FOR EYE ITCHING GENERAL ORDERS: CT Head w/wo Cont (No) (N/A) Urgent (21:33 07/19/2016 RCollier R.N. verbal order read back to Heather JACOBO) (Cancelled: Other21:40 CHategekimana) Cervical Spine 4 or 5V Urgent (21:34 07/19/2016 RCollier R.N. verbal order read back to Heather JACOBO) (Cancelled: Other21:40 CHategekimana) CT Head wo Cont Urgent (21:42 07/19/2016 CHategekimana per protocol) (Ack 21:47 CHategekimana) (22:10 MCampbell) CT Cervical Spine wo Cont Urgent (21:43 07/19/2016 CHategekimana per protocol) (Ack 21:47 CHategekimana) (22:10 MCampbell) UA-Culture if indicated Urgent (22:09 07/19/2016 RCollier R.N. verbal order read back to Heather JACOBO) (Ack 22:10 CHategekimana) (22:26 RCollier R.N.) MEDICATION ORDERS: Ceftriaxone IM 1 gm (NOW) (23:34 07/19/2016 Heather JACOBO) (Ack 23:48 RCollier R.N.) (23:57 RCollier R.N.) IV FLUIDS: ORDER SHEET NOTES: [Electronically signed by Soledad Villanueva R.N. (00:38 07/20/2016)] [Electronically signed by Gerard Cazares MD (12:40 07/21/2016)] [Electronically locked/signed by Soledad Villanueva R.N. (00:38 07/20/2016)]
--- NOTE | 2016-07-19 23:40 | ED CLINICAL REPORT ---
Clinical Report - Physicians/Mid Levels [facility] [address] [place] [address] 07/19/2016 21:33 Patient: JOSAFAT MAGALLANES Time Seen: 21:40. Arrived- By ambulance. Historian- EMS personnel and family. Not patient. History limited by dementia. HISTORY OF PRESENT ILLNESS Chief Complaint: INJURY TO HEAD. Location of injuries- head. The injury occurred just prior to arrival. Fell and landed on a hard surface (Probably while standing but the fall was unobserved). Occurred at home. The patient complains of mild pain. The patient sustained a blow to the head. The patient had loss of consciousness. (unknown). No seizure. (The patient takes plavix but not warfarin.). Prehospital Treatment: C-collar applied. Patient placed on backboard. REVIEW OF SYSTEMS No numbness, hearing loss, nausea, chest pain or depression. No weakness, loss of vision, difficulty breathing, bladder dysfunction or fever. She sustained skin laceration. Has not recently been ill. Daughter notes UTI symptoms for the last several days. PAST HISTORY Severe Dementia PROBLEMS: URI. Depression. Memory loss. Hyperlipidemia. Thrombocytosis. Vericose vein. Chest Pain. Rosacea. Elevated LFT's. Hemorrhoids. Rheumatoid Arthritis. Diverticulosis. UTI - Urinary Tract Infection. Pulmonary Nodule. Pharyngitis. Immunizations. Bronchitis. Nephrolithiasis. Arthritis. Irritable Bowel Syndrome. Gastroesophageal Reflux. Chronic Back Pain. Hypertension. ADDITIONAL SURGERIES: Ankle fx. Appendectomy. Back Surgery. Breast Biopsy. Cholecystectomy. Colonoscopy. Hysterectomy. Oophorectomy. Tonsillectomy. Upper GI endoscopy. --21:36. SOCIAL HISTORY Residence: Adult daughter is closely involved Resides in an assisted living center. 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 PHYSICAL EXAM Vital Signs: 07/20/2016 00:05 BP: 141/77. HR: 103. RR: 16. O2 saturation: 90%. Funes-Kinney pain scale: 2/10. 07/19/2016 21:30 RR: 16. Appearance: Alert. No acute distress. Head: Vertex: mild tenderness and swelling and subcutaneous 2.5 cm laceration of the right posterior aspect of the vertex. No deformity. Eyes: Pupils equal, round and reactive to light. EOM intact. ENT: No dental injury. Pharynx normal. Neck: Painless ROM. Neck non-tender. Respiratory: Breath sounds normal. Chest nontender. Abdomen: Soft and nontender. Back: No tenderness. ROM normal. Skin: Skin warm and dry. Extremities: Normal inspection. Extremities atraumatic. Neuro: The patient is disoriented to time and place (base line behavior). Speech normal. No motor deficit. No sensory deficit. LABS, X-RAYS, AND EKG CT C-Spine: (Name: JOSAFAT MAGALLANES : 35 Sex: Female Age: 81 MR#: [id number] Pt Status: REG Ordering Provider: TOYIN FREY MD REPORT #: [id number] DATE OF EXAM(S): 07/19/16 PROCEDURE: CT CERVICAL SPINE W/O CONTRAST INDICATION: TRAUMA/INJURY TECHNIQUE: Axial CT images were obtained through the cervical spine. Coronal and sagittal reformations were created. No comparison. COMPARISON: None. FINDINGS: The craniocervical junction is intact. Mild atlantodental interval degeneration. The cervical vertebral bodies are normal in height without evidence of fracture. Moderate anterior and posterior endplate spurs. There is reversal of the normal cervical lordosis with a moderate kyphosis centered at C5. A posterior bridging osteophyte arising from the C5 inferior endplate extends caudally and, combined with moderate posterior disc osteophyte complex, results in a severe C5-6 central canal stenosis. There is moderate facet arthropathy at C2-3 on the left and mild facet arthropathy elsewhere. Multilevel uncovertebral joint hypertrophy and degenerative disc changes cause bilateral foraminal narrowing, C3-4 through C6-7, most severe on the right at C5-6 level. No prevertebral or paravertebral soft-tissue swelling or mass. Patent airway and emphysematous lung apices. IMPRESSION: 1. No evidence of vertebral body fracture or 2. Chronic-appearing cervical kyphosis with severe central canal stenosis at C5-6. 3. Chronic-appearing bony foraminal narrowing bilaterally on the right at C5-6. 4. Emphysema. 5. Findings called to the emergency room. All CT scans at this facility use dose modulation, iterative reconstruction, and/or weight-based dosing when appropriate to reduce radiation dose to as low as reasonably achievable. Dictated by: TOMMY ZHANG MD D: RADHA;07/19/162302 <Electronically signed by TOMMY ZHANG MD in OV> 07/19/162302). The study was interpreted by the radiologist and contemporaneously by me and discussed with the radiologist. CT Head: (Name: JOSAFAT MAGALLANES : 35 Sex: Female Age: 81 MR#: [id number] Pt Status: REG ER Ordering Provider: TOYIN FREY MD REPORT #: [id number] DATE OF EXAM(S): 07/19/16 PROCEDURE: CT HEAD WITHOUT CONTRAST INDICATION: TRAUMA/INJURY TECHNIQUE: Axial CT images were acquired through the head. Coronal and sagittal reformations were created. COMPARISON: 08/31/2012 FINDINGS: Moderate cerebral cortical atrophy, mildly progressed. Moderate patchy and confluent hypodensity in the periventricular and subcortical white matter. Interval development of mild ventriculomegaly. No intracranial hemorrhage or extraaxial fluid collections. Ventricles are normal in size, shape and position. There is no mass, mass effect or midline shift. The harris-white matter differentiation is normal. There is no edema. Subcutaneous hematoma measuring about 3.6 cm in length by about 8 mm in width in the left posterior parietal region. No underlying fracture. The paranasal sinuses and mastoid air cells are normally aerated. The orbits are normal. IMPRESSION: 1. No evidence of acute hemorrhage, mass effect, CVA, or fracture underlying a small left posterior subgaleal hematoma. 2. Since the most recent CT, there has been progression of cerebral cortical involution, white matter hypodensity, and development of ventriculomegaly. This is consistent with the patient's history of dementia. 3. Findings discussed with Dr. Frey at [address] scans at this facility use dose modulation, iterative reconstruction, and/or weight-based dosing when appropriate to reduce radiation dose to as low as reasonably achievable. Dictated by: TOMMY ZHANG MD D: KATHYKR;07/19/16 3471 <Electronically signed by TOMMY ZHANG MD in OV> 07/19/16 1000). The study was interpreted by the radiologist and contemporaneously by me and discussed with the radiologist. Laboratory Tests: UA-Culture if indicated: (KASEY: 07/19/2016 22:18) ( MsgRcvd 07/19/2016 22:46) Final results Test Result Flag Units (Reference) URINE COLOR YELLOW URINE APPEARANCE CLOUDY URINE GLUCOSE NEGATIVE (NEGATIVE) URINE BILIRUBIN NEGATIVE (NEGATIVE) URINE KETONE NEGATIVE (NEGATIVE) URINE SPECIFIC GRAVITY 1.015 (1.010-1.030) URINE PH 6.0 (5.0-8.0) URINE PROTEIN NEGATIVE (NEGATIVE) URINE UROBILINOGEN 0.2 EU/dL (0.2-1.0) URINE NITRITE POSITIVE (NEGATIVE) URINE BLOOD NEGATIVE (NEGATIVE) URINE LEUK ESTERASE POSITIVE (NEGATIVE) URINE RBC NONE SEEN rbc/hpf (0-1) URINE WBC 50-75 wbc/hpf (0-1) URINE EPITHELIAL CELLS NONE SEEN EPI/hpf (0-5) URINE BACTERIA MANY (4+) (NONE SEEN) URINE COMMENT CULTURE INDICATED URINE CULTURES ARE SET-UP BASED ON THE FOLLOWING CRITERIA:POSITIVE NITRITEPOSITIVE LEUKOCYTE ESTERASEGREATER THAN 10 WHITE BLOOD CELLSMODERATE (2+) OR GREATER BACTERIA . PROGRESS AND PROCEDURES Laceration Repair: Location: scalp. Length: 2.5 cm. Wound depth/shape- subcutaneous and stellate. Neuro/vascular/tendon status. (examined to base of wound no deep structure injuries are found.). Anesthesia provided using 1% lidocaine with epi. Prepped with Betadine. Wound explored and irrigated with normal saline. Closure of superficial layer: (3 mahogany). Course of Care: Daughter noted UTI symptoms in preceeding days. Cath UA demonstrates UTI. Will give IM Cefriaxone and then oral antibiotics for home. CT is without acute injuries. Mental status is baseline per patient's daughter. 12:38 07/21/16. While completing the report the day following the ED visit, I noticed that the patient's tetanus status was not assessed. I called today's charge nurse, Radha to call [facility] to assess the tetanus status. CLINICAL IMPRESSION Minor closed head injury. Single laceration to the scalp. Acute urinary tract infection. Fall. INSTRUCTIONS (EVERY 2 HOUR MENTAL STATUS CHECKS FOR 24 HOURS. IMMEDIATE RECHECK IN ED IF WORSE. MAHOGANY OUT IN 10-14 DAYS ORDER: BACTRIM DS 1 PO BID X 7 DAYS. MAY USE LIQUID PREPARATION. RX IS WRITTEN/ R MD TK CONSIDER CALLING A VISITING NURSE IF A URINE SAMPLE IS NEEDED AND CANNOT BE OBTAINED A CLEAN VOIDED URINE.). Prescription Medications: Bactrim Liquid 40mg/200mg/5 mL: every 12 hours for 7 days. No refill. Substitution is permissible. (EQUIVALENT OF BACTRIM DS = 20 ML BID) Follow-up: Follow up with your doctor TO RECHECK URINE IN 2 WEEKS. Understanding of the discharge instructions verbalized by family. (Electronically signed by oTyin Frey MD 07/21/2016 12:40) Addenda for JOSAFAT MAGALLANES VisitID: [id number] Date: 07/19/2016 07/21/2016 12:28 Tetanus status will need to be assessed. Charge nurse will call. (Electronically signed by Toyin Frey MD - 07/21/2016 12:28)
--- NOTE | 2016-07-19 23:40 | ED CLINICAL REPORT ---
Clinical Report - Physicians/Mid Levels [facility] [address] [place] [address] 07/19/2016 21:33 Patient: JOSAFAT MAGALLANES Time Seen: 21:40. Arrived- By ambulance. Historian- EMS personnel and family. Not patient. History limited by dementia. HISTORY OF PRESENT ILLNESS Chief Complaint: INJURY TO HEAD. Location of injuries- head. The injury occurred just prior to arrival. Fell and landed on a hard surface (Probably while standing but the fall was unobserved). Occurred at home. The patient complains of mild pain. The patient sustained a blow to the head. The patient had loss of consciousness. (unknown). No seizure. (The patient takes plavix but not warfarin.). Prehospital Treatment: C-collar applied. Patient placed on backboard. REVIEW OF SYSTEMS No numbness, hearing loss, nausea, chest pain or depression. No weakness, loss of vision, difficulty breathing, bladder dysfunction or fever. She sustained skin laceration. Has not recently been ill. Daughter notes UTI symptoms for the last several days. PAST HISTORY Severe Dementia PROBLEMS: URI. Depression. Memory loss. Hyperlipidemia. Thrombocytosis. Vericose vein. Chest Pain. Rosacea. Elevated LFT's. Hemorrhoids. Rheumatoid Arthritis. Diverticulosis. UTI - Urinary Tract Infection. Pulmonary Nodule. Pharyngitis. Immunizations. Bronchitis. Nephrolithiasis. Arthritis. Irritable Bowel Syndrome. Gastroesophageal Reflux. Chronic Back Pain. Hypertension. ADDITIONAL SURGERIES: Ankle fx. Appendectomy. Back Surgery. Breast Biopsy. Cholecystectomy. Colonoscopy. Hysterectomy. Oophorectomy. Tonsillectomy. Upper GI endoscopy. --21:36. SOCIAL HISTORY Residence: Adult daughter is closely involved Resides in an assisted living center. 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 PHYSICAL EXAM Vital Signs: 07/20/2016 00:05 BP: 141/77. HR: 103. RR: 16. O2 saturation: 90%. Funes-Kinney pain scale: 2/10. 07/19/2016 21:30 RR: 16. Appearance: Alert. No acute distress. Head: Vertex: mild tenderness and swelling and subcutaneous 2.5 cm laceration of the right posterior aspect of the vertex. No deformity. Eyes: Pupils equal, round and reactive to light. EOM intact. ENT: No dental injury. Pharynx normal. Neck: Painless ROM. Neck non-tender. Respiratory: Breath sounds normal. Chest nontender. Abdomen: Soft and nontender. Back: No tenderness. ROM normal. Skin: Skin warm and dry. Extremities: Normal inspection. Extremities atraumatic. Neuro: The patient is disoriented to time and place (base line behavior). Speech normal. No motor deficit. No sensory deficit. LABS, X-RAYS, AND EKG CT C-Spine: (Name: JOSAFAT MAGALLANES : 35 Sex: Female Age: 81 MR#: [id number] Pt Status: REG Ordering Provider: TOYIN FREY MD REPORT #: [id number] DATE OF EXAM(S): 07/19/16 PROCEDURE: CT CERVICAL SPINE W/O CONTRAST INDICATION: TRAUMA/INJURY TECHNIQUE: Axial CT images were obtained through the cervical spine. Coronal and sagittal reformations were created. No comparison. COMPARISON: None. FINDINGS: The craniocervical junction is intact. Mild atlantodental interval degeneration. The cervical vertebral bodies are normal in height without evidence of fracture. Moderate anterior and posterior endplate spurs. There is reversal of the normal cervical lordosis with a moderate kyphosis centered at C5. A posterior bridging osteophyte arising from the C5 inferior endplate extends caudally and, combined with moderate posterior disc osteophyte complex, results in a severe C5-6 central canal stenosis. There is moderate facet arthropathy at C2-3 on the left and mild facet arthropathy elsewhere. Multilevel uncovertebral joint hypertrophy and degenerative disc changes cause bilateral foraminal narrowing, C3-4 through C6-7, most severe on the right at C5-6 level. No prevertebral or paravertebral soft-tissue swelling or mass. Patent airway and emphysematous lung apices. IMPRESSION: 1. No evidence of vertebral body fracture or 2. Chronic-appearing cervical kyphosis with severe central canal stenosis at C5-6. 3. Chronic-appearing bony foraminal narrowing bilaterally on the right at C5-6. 4. Emphysema. 5. Findings called to the emergency room. All CT scans at this facility use dose modulation, iterative reconstruction, and/or weight-based dosing when appropriate to reduce radiation dose to as low as reasonably achievable. Dictated by: TOMMY ZHANG MD D: RADHA;07/19/162302 <Electronically signed by TOMMY ZHANG MD in OV> 07/19/162302). The study was interpreted by the radiologist and contemporaneously by me and discussed with the radiologist. CT Head: (Name: JOSAFAT MAGALLANES : 35 Sex: Female Age: 81 MR#: [id number] Pt Status: REG ER Ordering Provider: TOYIN FREY MD REPORT #: [id number] DATE OF EXAM(S): 07/19/16 PROCEDURE: CT HEAD WITHOUT CONTRAST INDICATION: TRAUMA/INJURY TECHNIQUE: Axial CT images were acquired through the head. Coronal and sagittal reformations were created. COMPARISON: 08/31/2012 FINDINGS: Moderate cerebral cortical atrophy, mildly progressed. Moderate patchy and confluent hypodensity in the periventricular and subcortical white matter. Interval development of mild ventriculomegaly. No intracranial hemorrhage or extraaxial fluid collections. Ventricles are normal in size, shape and position. There is no mass, mass effect or midline shift. The harris-white matter differentiation is normal. There is no edema. Subcutaneous hematoma measuring about 3.6 cm in length by about 8 mm in width in the left posterior parietal region. No underlying fracture. The paranasal sinuses and mastoid air cells are normally aerated. The orbits are normal. IMPRESSION: 1. No evidence of acute hemorrhage, mass effect, CVA, or fracture underlying a small left posterior subgaleal hematoma. 2. Since the most recent CT, there has been progression of cerebral cortical involution, white matter hypodensity, and development of ventriculomegaly. This is consistent with the patient's history of dementia. 3. Findings discussed with Dr. Frey at [address] scans at this facility use dose modulation, iterative reconstruction, and/or weight-based dosing when appropriate to reduce radiation dose to as low as reasonably achievable. Dictated by: TOMMY ZHANG MD D: KATHYKR;07/19/16 8959 <Electronically signed by TOMMY ZHANG MD in OV> 07/19/16 1939). The study was interpreted by the radiologist and contemporaneously by me and discussed with the radiologist. Laboratory Tests: UA-Culture if indicated: (KASEY: 07/19/2016 22:18) ( MsgRcvd 07/19/2016 22:46) Final results Test Result Flag Units (Reference) URINE COLOR YELLOW URINE APPEARANCE CLOUDY URINE GLUCOSE NEGATIVE (NEGATIVE) URINE BILIRUBIN NEGATIVE (NEGATIVE) URINE KETONE NEGATIVE (NEGATIVE) URINE SPECIFIC GRAVITY 1.015 (1.010-1.030) URINE PH 6.0 (5.0-8.0) URINE PROTEIN NEGATIVE (NEGATIVE) URINE UROBILINOGEN 0.2 EU/dL (0.2-1.0) URINE NITRITE POSITIVE (NEGATIVE) URINE BLOOD NEGATIVE (NEGATIVE) URINE LEUK ESTERASE POSITIVE (NEGATIVE) URINE RBC NONE SEEN rbc/hpf (0-1) URINE WBC 50-75 wbc/hpf (0-1) URINE EPITHELIAL CELLS NONE SEEN EPI/hpf (0-5) URINE BACTERIA MANY (4+) (NONE SEEN) URINE COMMENT CULTURE INDICATED URINE CULTURES ARE SET-UP BASED ON THE FOLLOWING CRITERIA:POSITIVE NITRITEPOSITIVE LEUKOCYTE ESTERASEGREATER THAN 10 WHITE BLOOD CELLSMODERATE (2+) OR GREATER BACTERIA . PROGRESS AND PROCEDURES Laceration Repair: Location: scalp. Length: 2.5 cm. Wound depth/shape- subcutaneous and stellate. Neuro/vascular/tendon status. (examined to base of wound no deep structure injuries are found.). Anesthesia provided using 1% lidocaine with epi. Prepped with Betadine. Wound explored and irrigated with normal saline. Closure of superficial layer: (3 mahogany). Course of Care: Daughter noted UTI symptoms in preceeding days. Cath UA demonstrates UTI. Will give IM Cefriaxone and then oral antibiotics for home. CT is without acute injuries. Mental status is baseline per patient's daughter. 12:38 07/21/16. While completing the report the day following the ED visit, I noticed that the patient's tetanus status was not assessed. I called today's charge nurse, Radha to call [facility] to assess the tetanus status. CLINICAL IMPRESSION Minor closed head injury. Single laceration to the scalp. Acute urinary tract infection. Fall. INSTRUCTIONS (EVERY 2 HOUR MENTAL STATUS CHECKS FOR 24 HOURS. IMMEDIATE RECHECK IN ED IF WORSE. MAHOGANY OUT IN 10-14 DAYS ORDER: BACTRIM DS 1 PO BID X 7 DAYS. MAY USE LIQUID PREPARATION. RX IS WRITTEN/ R MD TK CONSIDER CALLING A VISITING NURSE IF A URINE SAMPLE IS NEEDED AND CANNOT BE OBTAINED A CLEAN VOIDED URINE.). Prescription Medications: Bactrim Liquid 40mg/200mg/5 mL: every 12 hours for 7 days. No refill. Substitution is permissible. (EQUIVALENT OF BACTRIM DS = 20 ML BID) Follow-up: Follow up with your doctor TO RECHECK URINE IN 2 WEEKS. Understanding of the discharge instructions verbalized by family. (Electronically signed by Toyin Frey MD 07/21/2016 12:40) Addenda for JOSAFAT MAGALLANES VisitID: [id number] Date: 07/19/2016 07/21/2016 12:28 Tetanus status will need to be assessed. Charge nurse will call. (Electronically signed by Toyin Frey MD - 07/21/2016 12:28)
--- NOTE | 2016-07-19 23:40 | ED NURSING NOTES ---
Clinical Report - Nurses [facility] [address] [address] 07/19/2016 21:33 Patient: JOSAFAT MAGALLANES TRIAGE Triage time 21:30. Chief Complaint: FALL. --21:35 Soledad Villanueva R.N. MERON COMA SCORE: Meron Coma Scale: 12- eyes open spontaneously (4); best verbal response- inappropriate speech (3); best motor response- localizes to pain (5). --21:37 Soledad Villanueva R.N. 21:30 07/19/16. BP: unable to obtain. HR: unable to obtain. RR: 16 (regular and unlabored). O2 saturation: unable to obtain. Temp: unable to obtain. Additional comments: pt unwilling to cooperate with vitals. --00:07 Soledad Villanueva R.N. Weight: 66.6 kg stated. Height/Length: 68 inches Per Patient. BMI: 22.3. --21:45 Soledad Villanueva R.N. Medications Calcium Carbonate-Vitamin D Oral (Capsule 500-50 mg-unit) 1 capsule. ClonazePAM Oral (Tablet 0.5 mg) 1-1/2 tablets, 3x a day. Furosemide Oral (Tablet 20 mg) 1 tablet, daily. Lortab Oral (Tablet 10-325 mg), PRN. Mirtazapine Oral (Tablet 15 mg) 1 tablet, at bedtime. Multivitamins Oral 1 pill, daily. Probiotic Daily Oral 1tab, bid. Raloxifene HCl Oral 60 mg, daily. Vitamin D Oral (Capsule 1000 unit) 2 capsules, daily. --21:36 Soledad Villanueva R.N. Antacid Oral. --21:42 Soledad Villanueva R.N. Bisac-Evac Rectal, as needed, constipation. --21:43 Soledda Villanueva R.N. Diazepam Oral (Concentrate 5 mg/mL), 2x a day as needed, anxiety. --21:45 Sloedad Villanueva R.N. Milk of Magnesia Oral 30ml, as needed. --21:46 Soledad Villanueva R.N. Allergies Atorvastatin. Lipitor- liver enzymes become elevated. MEDICATION FOR EYE ITCHING. --21:36 Soledad Villanueva R.N. History Arrived by EMS. Primary physician (UNKNOWN). Location of injuries: head. This occurred just prior to arrival and today. Occurred at [facility]). --21:35 Soledad Villanueva R.N. PROBLEMS: URI. Depression. Memory loss. Hyperlipidemia. Thrombocytosis. Vericose vein. Chest Pain. Rosacea. Elevated LFT's. Hemorrhoids. Rheumatoid Arthritis. Diverticulosis. UTI - Urinary Tract Infection. Pulmonary Nodule. Pharyngitis. Immunizations. Bronchitis. Nephrolithiasis. Arthritis. Irritable Bowel Syndrome. Gastroesophageal Reflux. Chronic Back Pain. Hypertension. --21:36 Soledad Villanueva R.N. ADDITIONAL SURGERIES: Ankle fx. Appendectomy. Back Surgery. Breast Biopsy. Cholecystectomy. Colonoscopy. Hysterectomy. Oophorectomy. Tonsillectomy. Upper GI endoscopy. --21:36 Soledad Villanueva R.N. PHYSICAL ASSESSMENT To room via stretcher. GENERAL / NEURO / PSYCH: Appears anxious. RESPIRATORY: Respirations not labored. CVS: Capillary refill less than 2 seconds. SKIN: Skin is warm and dry. --21:38 Soledad Villanueva R.N. NURSING PROGRESS NOTES Patient placed on backboard (pt arrives to ED on back board). Two patient identifiers checked. Call light placed in reach. Side rails up x 2. Bed placed in lowest position. Brakes of bed on. --21:39 Soledad Villanueva R.N. C-collar applied (EMS states pt would not tolerate c-collar, neck wrapped with towel (horse collar) in place SHOVEL LOGGER). --21:40 Soledad Villanueva R.N. Patient transported to CT by stretcher with tech. (21:46). --21:47 Soledad Villanueva R.N. 21:40- late entry -Daughter arrives at bedside. --22:31 Soledad Villanueva R.N. 22:03- Pt removed from Back board by EDMD with help from 1 RN. --22:08 Soledad Villanueva R.N. 8 fr in/out catheterization. During procedure hand hygiene observed and sterile equipment and aseptic technique used. Return of yellow-colored urine. It was a complicated placement. She tolerated procedure poorly (Assist by second RN plus one [employer]). Patient ID band checked for patient name and birthdate: patient confirmed. Catheterized urine collected with return of yellow-colored urine; sample sent to lab. Specimen labeled in the presence of the patient. --22:22 Soledad Villanueva R.N. Patient hygiene performed: received partial bath. Patient is incontinent of stool. Stool described as formed. Changed patient diaper. --22:23 Soledad Villanueva R.N. WOUND REPAIR: Wound repair performed by ED physician. Assisted by two nurses. The wound is located on the scalp. The wound is irregular and flap-like. Preparation: suture tray set-up with 1% lidocaine with epi. Wound cleansed per physician and irrigated per physician using a syringe. Procedure: wound repaired with mahogany. Post-procedure: she was stable. Total time of assist / procedure: 15 minutes. --23:18 Soledad Villanueva R.N. 23:57 07/19/2016 Ceftriaxone IM 1 gm with 1% Lidocaine 2.1mL. Given in the left ventral gluteus. Allergies verified and confirmed 5 rights. --23:57 Soledad Villanueva R.N. DISPOSITION / DISCHARGE 00:05 07/20/16. BP: 141/77. HR: 103. RR: 16 (regular and unlabored). O2 saturation: 90% on room air. Temp: unable to obtain. Funes-Kinney pain scale: 2/10. --00:05 Soledad Villanueva R.N. No learning barriers present. Discharge instructions provided and reviewed with the family. Family verbalized understanding. Written instructions provided in Estonian. The patient was discharged home and accompanied by family. She left the Emergency Department via private vehicle. Family member driving. --00:05 Soledad Villanueva R.N. 00:10- EDMD aware of abnormal vitals. --00:30 Villanueva, Soledad, R.N. Departure time: 00:20- pt assisted to car via wheelchair with 1RN. --00:30 Soledad Villanueva R.N. Locked/Released at 07/20/2016 0:38 by Soledad Villanueva R.N.
--- NOTE | 2016-07-19 23:40 | ED NURSING NOTES ---
Clinical Report - Nurses [facility] [address] [address] 07/19/2016 21:33 Patient: JOSAFAT MAGALLANES TRIAGE Triage time 21:30. Chief Complaint: FALL. --21:35 Soledad Villanueva R.N. MERON COMA SCORE: Meron Coma Scale: 12- eyes open spontaneously (4); best verbal response- inappropriate speech (3); best motor response- localizes to pain (5). --21:37 Soledad Villanueva R.N. 21:30 07/19/16. BP: unable to obtain. HR: unable to obtain. RR: 16 (regular and unlabored). O2 saturation: unable to obtain. Temp: unable to obtain. Additional comments: pt unwilling to cooperate with vitals. --00:07 Soledad Villanueva R.N. Weight: 66.6 kg stated. Height/Length: 68 inches Per Patient. BMI: 22.3. --21:45 Soledad Villanueva R.N. Medications Calcium Carbonate-Vitamin D Oral (Capsule 500-50 mg-unit) 1 capsule. ClonazePAM Oral (Tablet 0.5 mg) 1-1/2 tablets, 3x a day. Furosemide Oral (Tablet 20 mg) 1 tablet, daily. Lortab Oral (Tablet 10-325 mg), PRN. Mirtazapine Oral (Tablet 15 mg) 1 tablet, at bedtime. Multivitamins Oral 1 pill, daily. Probiotic Daily Oral 1tab, bid. Raloxifene HCl Oral 60 mg, daily. Vitamin D Oral (Capsule 1000 unit) 2 capsules, daily. --21:36 Soledad Villanueva R.N. Antacid Oral. --21:42 Soledad Villanueva R.N. Bisac-Evac Rectal, as needed, constipation. --21:43 Soledad Villanueva R.N. Diazepam Oral (Concentrate 5 mg/mL), 2x a day as needed, anxiety. --21:45 Soledad Villanueva R.N. Milk of Magnesia Oral 30ml, as needed. --21:46 Soledad Villanueva R.N. Allergies Atorvastatin. Lipitor- liver enzymes become elevated. MEDICATION FOR EYE ITCHING. --21:36 Soledad Villanueva R.N. History Arrived by EMS. Primary physician (UNKNOWN). Location of injuries: head. This occurred just prior to arrival and today. Occurred at [facility] ([facility]). --21:35 Soledad Villanueva R.N. PROBLEMS: URI. Depression. Memory loss. Hyperlipidemia. Thrombocytosis. Vericose vein. Chest Pain. Rosacea. Elevated LFT's. Hemorrhoids. Rheumatoid Arthritis. Diverticulosis. UTI - Urinary Tract Infection. Pulmonary Nodule. Pharyngitis. Immunizations. Bronchitis. Nephrolithiasis. Arthritis. Irritable Bowel Syndrome. Gastroesophageal Reflux. Chronic Back Pain. Hypertension. --21:36 Soledad Villanueva R.N. ADDITIONAL SURGERIES: Ankle fx. Appendectomy. Back Surgery. Breast Biopsy. Cholecystectomy. Colonoscopy. Hysterectomy. Oophorectomy. Tonsillectomy. Upper GI endoscopy. --21:36 Soledad Villanueva R.N. PHYSICAL ASSESSMENT To room via stretcher. GENERAL / NEURO / PSYCH: Appears anxious. RESPIRATORY: Respirations not labored. CVS: Capillary refill less than 2 seconds. SKIN: Skin is warm and dry. --21:38 Soledad Villanueva R.N. NURSING PROGRESS NOTES Patient placed on backboard (pt arrives to ED on back board). Two patient identifiers checked. Call light placed in reach. Side rails up x 2. Bed placed in lowest position. Brakes of bed on. --21:39 Soledad Villanueva R.N. C-collar applied (EMS states pt would not tolerate c-collar, neck wrapped with towel (horse collar) in place [employer]). --21:40 Soledad Villanueva R.N. Patient transported to CT by stretcher with tech. (21:46). --21:47 Soledad Villanueva R.N. 21:40- late entry -Daughter arrives at bedside. --22:31 Soledad Villanueva R.N. 22:03- Pt removed from Back board by EDMD with help from 1 RN. --22:08 Soledad Villanueva R.N. 8 fr in/out catheterization. During procedure hand hygiene observed and sterile equipment and aseptic technique used. Return of yellow-colored urine. It was a complicated placement. She tolerated procedure poorly (Assist by second RN plus one AUTISM TUTOR). Patient ID band checked for patient name and birthdate: patient confirmed. Catheterized urine collected with return of yellow-colored urine; sample sent to lab. Specimen labeled in the presence of the patient. --22:22 Soledad Villanueva R.N. Patient hygiene performed: received partial bath. Patient is incontinent of stool. Stool described as formed. Changed patient diaper. --22:23 Soledad Villanueva R.N. WOUND REPAIR: Wound repair performed by ED physician. Assisted by two nurses. The wound is located on the scalp. The wound is irregular and flap-like. Preparation: suture tray set-up with 1% lidocaine with epi. Wound cleansed per physician and irrigated per physician using a syringe. Procedure: wound repaired with mahogany. Post-procedure: she was stable. Total time of assist / procedure: 15 minutes. --23:18 Soledad Villanueva R.N. 23:57 07/19/2016 Ceftriaxone IM 1 gm with 1% Lidocaine 2.1mL. Given in the left ventral gluteus. Allergies verified and confirmed 5 rights. --23:57 Soledad Villanueva R.N. DISPOSITION / DISCHARGE 00:05 07/20/16. BP: 141/77. HR: 103. RR: 16 (regular and unlabored). O2 saturation: 90% on room air. Temp: unable to obtain. Funes-Kinney pain scale: 2/10. --00:05 Soledad Villanueva R.N. No learning barriers present. Discharge instructions provided and reviewed with the family. Family verbalized understanding. Written instructions provided in Slovak. The patient was discharged home and accompanied by family. She left the Emergency Department via private vehicle. Family member driving. --00:05 Soledad Villanueva R.N. 00:10- EDMD aware of abnormal vitals. --00:30 Villanueva, Soledad, R.N. Departure time: 00:20- pt assisted to car via wheelchair with 1RN. --00:30 Soledad Villanueva R.N. Locked/Released at 07/20/2016 0:38 by Soledad Villanueva R.N.
--- NOTE | 2016-07-21 12:40 | ED MED RECONCILIATION SUMMARY ---
Patient: JOSAFAT MAGALLANES Medication Reconciliation Report [facility] VisitID: [id number] [place] [address] 81y, F Registration Date/Time: 07/19/2016 Weight: 66.6 kg Height/Length: 68 in. BMI: 22.3 ALLERGIES: Atorvastatin, Lipitor- liver enzymes become elevated, MEDICATION FOR EYE ITCHING The patient's Home Medications are listed below: THE FOLLOWING MEDICATIONS NEED TO BE RECONCILED: Antacid Oral Bisac-Evac Rectal, constipation Calcium Carbonate-Vitamin D Oral (500-50 mg-unit) 1 capsule ClonazePAM Oral (0.5 mg) 1-1/2 tablets, 3x a day Diazepam Oral (5 mg/mL), 2x a day, anxiety Furosemide Oral (20 mg) 1 tablet, daily Lortab Oral (10-325 mg), PRN Milk of Magnesia Oral 30ml Mirtazapine Oral (15 mg) 1 tablet, at bedtime Multivitamins Oral 1 pill, daily Probiotic Daily Oral 1tab, bid Raloxifene HCl Oral 60 mg, daily Vitamin D Oral (1000 unit) 2 capsules, daily The source(s) of the original Home Medication information: Not obtained. The following Medications were given to the patient in the Emergency Department: Ceftriaxone [IM] IM 1 gm with 1% Lidocaine 2.1 mL, administered: 07/19/2016 11:57:00 PM The following Medications were prescribed to the patient: Bactrim Liquid 40mg/200mg/5 mL: every 12 hours for 7 days. No refill. Substitution is permissible.(EQUIVALENT OF BACTRIM DS = 20 ML BID) -- Gerard Cazares MD
--- NOTE | 2016-07-21 12:40 | ED MED RECONCILIATION SUMMARY ---
Patient: JOSAFAT MAGALLANES Medication Reconciliation Report [facility] VisitID: [id number] [place] [address] 81y, F Registration Date/Time: 07/19/2016 Weight: 66.6 kg Height/Length: 68 in. BMI: 22.3 ALLERGIES: Atorvastatin, Lipitor- liver enzymes become elevated, MEDICATION FOR EYE ITCHING The patient's Home Medications are listed below: THE FOLLOWING MEDICATIONS NEED TO BE RECONCILED: Antacid Oral Bisac-Evac Rectal, constipation Calcium Carbonate-Vitamin D Oral (500-50 mg-unit) 1 capsule ClonazePAM Oral (0.5 mg) 1-1/2 tablets, 3x a day Diazepam Oral (5 mg/mL), 2x a day, anxiety Furosemide Oral (20 mg) 1 tablet, daily Lortab Oral (10-325 mg), PRN Milk of Magnesia Oral 30ml Mirtazapine Oral (15 mg) 1 tablet, at bedtime Multivitamins Oral 1 pill, daily Probiotic Daily Oral 1tab, bid Raloxifene HCl Oral 60 mg, daily Vitamin D Oral (1000 unit) 2 capsules, daily The source(s) of the original Home Medication information: Not obtained. The following Medications were given to the patient in the Emergency Department: Ceftriaxone [IM] IM 1 gm with 1% Lidocaine 2.1 mL, administered: 07/19/2016 11:57:00 PM The following Medications were prescribed to the patient: Bactrim Liquid 40mg/200mg/5 mL: every 12 hours for 7 days. No refill. Substitution is permissible.(EQUIVALENT OF BACTRIM DS = 20 ML BID) -- Gerard Cazares MD
--- NOTE | 2016-07-21 12:40 | ED MAR SUMMARY ---
..... Medication Administration Record [facility] [address] [place] [address] Patient: JOSAFAT MAGALLANES Visit ID: [id number] 81y, F Weight: 66.6 kg Height/Length: 68 in BMI: 22.3 ALLERGIES: Atorvastatin, Lipitor- liver enzymes become elevated, MEDICATION FOR EYE ITCHING Given 23:57 07/19/2016 Soledad Villanueva, RGonzálezNGonzález Medication Administered: CEFTRIAXONE [IM], Dose: 1 gm IM, With: 1% LIDOCAINE 2.1 mL. Medication Ordered: Ceftriaxone IM 1 gm (NOW).
--- NOTE | 2016-07-21 12:40 | ED MAR SUMMARY ---
..... Medication Administration Record [facility] [address] [place] [address] Patient: JOSAFAT MAGALLANES Visit ID: [id number] 81y, F Weight: 66.6 kg Height/Length: 68 in BMI: 22.3 ALLERGIES: Atorvastatin, Lipitor- liver enzymes become elevated, MEDICATION FOR EYE ITCHING Given 23:57 07/19/2016 Soledad Villanueva, RGonzálezNGonzález Medication Administered: CEFTRIAXONE [IM], Dose: 1 gm IM, With: 1% LIDOCAINE 2.1 mL. Medication Ordered: Ceftriaxone IM 1 gm (NOW).
--- NOTE | 2016-07-21 12:40 | ED DISCHARGE INSTRUCTIONS ---
Patient: JOSAFAT MAGALLANES General Instructions [facility] VisitID: [id number] [place] [address] 81y, F Registration Date/Time: 07/19/2016 Minor closed head injury. Single laceration to the scalp. Acute urinary tract infection. Fall. INSTRUCTIONS (EVERY 2 HOUR MENTAL STATUS CHECKS FOR 24 HOURS. IMMEDIATE RECHECK IN ED IF WORSE. MAHOGANY OUT IN 10-14 DAYS ORDER: BACTRIM DS 1 PO BID X 7 DAYS. MAY USE LIQUID PREPARATION. RX IS WRITTEN/ R MD TK CONSIDER CALLING A VISITING NURSE IF A URINE SAMPLE IS NEEDED AND CANNOT BE OBTAINED A CLEAN VOIDED URINE.). Prescription Medications: Bactrim Liquid 40mg/200mg/5 mL: every 12 hours for 7 days. No refill. Substitution is permissible. (EQUIVALENT OF BACTRIM DS = 20 ML BID) Follow-up: Follow up with your doctor TO RECHECK URINE IN 2 WEEKS. Understanding of the discharge instructions verbalized by family. ADDITIONAL INFORMATION Head Injury With Wake-Up (Adult) You have had a head injury. It does not appear serious at this time. Symptoms of a more serious problem (concussion, bruising, or bleeding in the brain) may appear later. Therefore, watch for the WARNING SIGNS listed below. Home Care: During the next 24 hours someone must stay with you. This person should wake you every 2 hours to check for the signs below. If you have swelling of the face or scalp, apply an ice pack (ice cubes in a plastic bag, wrapped in a towel) for 20 minutes every 1-2 hours until the swelling starts to go down. Do not use aspirin or ibuprofen (Motrin, Advil) after a head injury. You may use acetaminophen (Tylenol) to control pain, unless another pain medicine was prescribed. [NOTE: If you have chronic liver or kidney disease or ever had a stomach ulcer or GI bleeding, talk with your doctor before using these medicines.] For the next 24 hours: Do not take alcohol, sedatives, or medicines that make you sleepy. Do not drive or operate machinery. Avoid strenuous activities. No lifting or straining. If you have had any symptoms of a concussion today (nausea, vomiting, dizziness, confusion, headache, memory loss, or you were knocked out), do not return to sports or any activity that could result in another head injury until all symptoms are gone and you have been cleared by your doctor. A second head injury before fully recovering from the first one can lead to serious brain injury. Follow Up with your doctor if symptoms are not improving after 24 hours, or as directed. [NOTE: A radiologist will review any X-rays or CT scans that were taken. We will notify you of any new findings that may affect your care.] Get Prompt Medical Attention if any of the following WARNING SIGNS occur: Repeated vomiting Severe or worsening headache or dizziness Unusual drowsiness, or unable to awaken as usual Confusion or change in behavior or speech, memory loss, blurred vision Convulsion (seizure) Increasing scalp or face swelling Redness, warmth or pus from the swollen area Fluid drainage or bleeding from the nose or ears Fall, Uncertain Cause You have had a fall today. but the cause of your fall is not certain. Falls can occur due to slipping, tripping or losing your balance. A fall can also occur from a fainting spell or seizure. Because the cause of your fall today is not certain, it is possible that a fainting spell or seizure was the cause. This means that it could happen again, without warning. If you fall again, without a cause, then you should return to this facility promptly to have further tests. Otherwise, follow up with your doctor as explained below. Home Care: 1) Rest today and resume your normal activities as soon as you are feeling back to normal. It is best to remain with someone who can check on you for the next 24 hours to watch for another episode of falling. 2) If you were injured during the fall, follow the advice from your doctor regarding care of your injury. 3) If you become light-headed or dizzy, lie down immediately or sit and lean forward with your head down. 4) As a precaution, do not drive a car or operate dangerous equipment, do not take a bath alone (use a shower instead) and do not swim alone until you see your doctor. A condition causing fainting or seizures must be ruled out before resuming these activities. 5)You may use acetaminophen (Tylenol) or ibuprofen (Motrin, Advil) to control pain, unless another pain medicine was prescribed. [ NOTE : If you have chronic liver or kidney disease or ever had a stomach ulcer or GI bleeding, talk with your doctor before using these medicines.] 6) Keep your appointments for any further testing that may have been scheduled for you. Follow Up: Unless, given other advice, call your doctor on the next office day to advise of your fall and to schedule an appointment. Get Prompt Medical Attention if any of the following occur: -- Another unexplained fall -- Dizziness, fainting or seizure -- Severe headache -- Chest pain or shortness of breath -- Palpitations (very rapid or very slow or irregular heart beat) -- Blood in vomit, stools (black or red color) -- Weakness of an arm or leg or one side of the face -- Difficulty with speech or vision Laceration, Scalp (Sutures Or De Berry) A laceration is a cut through the skin. This will require stitches (sutures) or mahogany if it is deep. Home care The following guidelines will help you care for your laceration at home: During the first two days you may carefully rinse your hair in the shower to remove blood, glass or dirt particles. After two days you may shower and shampoo your hair normally. Have someone help you clean your wound every day: In the shower, wash the area with soap and water. Use a wet cotton swab to loosen and remove any blood or crust that forms. After cleaning, keep the wound clean and dry. Talk with your doctor before applying any antibiotic ointment to the wound. Reapply a fresh bandage. Do not put your head under water (no swimming) until the stitches or mahogany have been removed. The doctor may prescribe an antibiotic cream or ointment to prevent infection. Do not stop taking this medication until you have finished the prescribed course or the doctor tells you to stop. The doctor may also prescribe medications for pain. Follow the doctors instructions for taking these medications. If you have chronic liver or kidney disease or ever had a stomach ulcer or GI bleeding, talk with your doctor before using these medicines. Follow-up care Follow up with your health care provider. Most scalp wounds heal within seven days. However, an infection can sometimes occur. Check the wound daily for the warning signs listed below. Stitches or mahogany should be removed from the scalp in about 57 days. When to seek medical care Get prompt medical attention if any of these occur: Increasing pain in the wound Redness, swelling, or pus coming from the wound Fever of 100.4F (38C) or higher, or as directed by your health care provider If stitches or mahogany come apart or fall out before your next appointment If the wound edges re-open Bleeding not controlled by direct pressure Bladder Infection,Female (Adult) A bladder infection ("cystitis" or "UTI") usually causes a constant urge to urinate and a burning when passing urine. Urine may be cloudy, smelly or dark. There may be pain in the lower abdomen. A bladder infection occurs when bacteria from the vaginal area enter the bladder opening (urethra). This can occur from sexual intercourse, wearing tight clothing, dehydration and other factors. Home Care: Drink lots of fluids (at least 6-8 glasses a day, unless you must restrict fluids for other medical reasons). This will force the medicine into your urinary system and flush the bacteria out of your body. Avoid sexual intercourse until your symptoms are gone. Avoid caffeine, alcohol and spicy foods. These can irritate the bladder. A bladder infection is treated with antibiotics. You may also be given Pyridium (generic = phenazopyridine) to reduce the burning sensation. This medicine will cause your urine to become a bright orange color. The orange urine may stain clothing. You may wear a pad or panty-liner to protect clothing. Preventing Future Infections: Always wipe from front to back after a bowel movement. Keep the genital area clean and dry. Drink plenty of fluids each day to avoid dehydration. Both sexual partners should wash before intercourse. Urinate right after intercourse to flush out the bladder. Wear cotton underwear and cotton-lined panty hose; avoid tight-fitting pants. If you are on control pills and are having frequent bladder infections, discuss with your doctor. Follow Up: Return to this facility or see your doctor if ALL symptoms are not gone after three days of treatment. Get Prompt Medical Attention if any of the following occur: Fever of 100.4F (38C) or higher, or as directed by your healthcare provider No improvement by the third day of treatment Increasing back or abdominal pain Repeated vomiting; unable to keep medicine down Weakness, dizziness or fainting Vaginal discharge Pain, redness or swelling in the labia (outer vaginal area) Sulfamethoxazole, Trimethoprim Oral suspension What is this medicine? SULFAMETHOXAZOLE; TRIMETHOPRIM or SMX-TMP (suhl fuh meth OK brannon zohl; trye METH oh prim) is a combination of a sulfonamide antibiotic and a second antibiotic, trimethoprim. It is used to treat or prevent certain kinds of bacterial infections.It will not work for colds, flu, or other viral infections. How should I use this medicine? Take this suspension by mouth. Follow the directions on the prescription label. Shake the bottle well before taking. Use a specially marked spoon or container to measure your medicine. Ask your pharmacist if you do not have one. Household spoons are not accurate. Take your doses at regular intervals. Do not take more medicine than directed. Talk to your services advisor regarding the use of this medicine in children. Special care may be needed. While this drug may be prescribed for children as young as 2 months of age for selected conditions, precautions do apply. What side effects may I notice from receiving this medicine? Side effects that you should report to your doctor or health nanny caregiver as soon as possible: allergic reactions like skin rash or hives, swelling of the face, lips, or tongue breathing problems fever or chills, sore throat irregular heartbeat, chest pain joint or muscle pain pain or difficulty passing urine red pinpoint spots on skin redness, blistering, peeling or loosening of the skin, including inside the mouth unusual bleeding or bruising unusual weakness or tiredness yellowing of the eyes or skin Side effects that usually do not require medical attention (report to your doctor or health nanny caregiver if they continue or are bothersome): diarrhea dizziness headache loss of appetite nausea, vomiting nervousness What may interact with this medicine? Do not take this medicine with any of the following medications aminobenzoate potassium dofetilide metronidazole This medicine may also interact with the following medications SILKE inhibitors like benazepril, enalapril, lisinopril, and ramipril cyclosporine digoxin diuretics indomethacin medicines for diabetes methenamine methotrexate phenytoin potassium supplements pyrimethamine sulfinpyrazone tricyclic antidepressants warfarin What if I miss a dose? If you miss a dose, take it as soon as you can. If it is almost time for your next dose, take only that dose. Do not take double or extra doses. Where should I keep my medicine? Keep out of the reach of children. Store at room temperature between 15 and 25 degrees C (59 and 77 degrees F). Protect from light and moisture. Throw away any unused medicine after the expiration date. What should I tell my health care provider before I take this medicine? They need to know if you have any of these conditions: anemia asthma being treated with anticonvulsants if you frequently drink alcohol containing drinks kidney disease liver disease low level of folic acid or [id number] dehydrogenase poor nutrition or malabsorption porphyria severe allergies thyroid disorder an unusual or allergic reaction to sulfamethoxazole, trimethoprim, sulfa drugs, other medicines, foods, dyes, or preservatives or trying to get breast-feeding What should I watch for while using this medicine? Tell your doctor or health nanny caregiver if your symptoms do not improve. Drink several glasses of water a day to reduce the risk of kidney problems. Do not treat diarrhea with over the counter products. Contact your doctor if you have diarrhea that lasts more than 2 days or if it is severe and watery. This medicine can make you more sensitive to the sun. Keep out of the sun. If you cannot avoid being in the sun, wear protective clothing and use a sunscreen. Do not use sun lamps or tanning beds/booths. You have been given the following additional information: HEAD INJURY with Wake-Up (Adult) Fall, Uncertain Cause Laceration, Scalp Bladder Infection, Female (Adult) Sulfamethoxazole, Trimethoprim Oral suspension (Electronically signed by Gerard Cazares MD 07/21/2016 12:40)
== END 2016-07-20 00:05 | disposition home or self-care (01) ==
LOC: ED SRH 21:31
DX: S01.01XA Laceration without foreign body of scalp, initial encounter (principal); S06.9X9A Unspecified intracranial injury with loss of consciousness of unspecified duration, initial encounter; N39.0 Urinary tract infection, site not specified; W19.XXXA Unspecified fall, initial encounter; Y93.9 Activity, unspecified; Y92.199 Unspecified place in other specified residential institution as the place of occurrence of the external cause; Y99.9 Unspecified external cause status; F03.90 Unspecified dementia, unspecified severity, without behavioral disturbance, psychotic disturbance, mood disturbance, and anxiety; I10 Essential (primary) hypertension
CPT/HCPCS: 81460; 81663; 90004; 90469; 91672